=== PATIENT | female | born 1990 ===

== ENCOUNTER 2021-12-02 13:21 | Outpatient (CLI) | payer OTHER | END 2021-12-02 15:31 | disposition home or self-care (01) | LOC: PRENATAL 13:21 | PROVIDERS: ATTEND Obstetrics & Gynecology Maternal & Fetal Medicine | DX: O35.0XX0 Maternal care for (suspected) central nervous system malformation in fetus, not applicable or unspecified (principal); O35.3XX0 Maternal care for (suspected) damage to fetus from viral disease in mother, not applicable or unspecified; O28.1 Abnormal biochemical finding on antenatal screening of mother; Z3A.19 19 weeks gestation of pregnancy ==

== ENCOUNTER 2022-01-18 10:37 | Outpatient (CLI) | payer OTHER | END 2022-01-18 12:51 | disposition home or self-care (01) | LOC: PRENATAL 10:37 | PROVIDERS: ATTEND Obstetrics & Gynecology Maternal & Fetal Medicine | DX: O26.849 Uterine size-date discrepancy, unspecified trimester (principal); O35.0XX0 Maternal care for (suspected) central nervous system malformation in fetus, not applicable or unspecified; Z3A.26 26 weeks gestation of pregnancy ==

== ENCOUNTER → 2022-02-28 | Outpatient (CLI) | payer OTHER | END | disposition home or self-care (01) | LOC: PRENATAL 15:07 | PROVIDERS: ATTEND Obstetrics & Gynecology Maternal & Fetal Medicine | DX: O26.849 Uterine size-date discrepancy, unspecified trimester (principal); Z3A.32 32 weeks gestation of pregnancy; O35.0XX0 Maternal care for (suspected) central nervous system malformation in fetus, not applicable or unspecified; Z88.6 Allergy status to analgesic agent ==